=== PATIENT | female | born 1975 ===

== ENCOUNTER 2017-10-22 11:15 | Emergency (ER) | payer BC ==
[2017-10-22 11:52] VITALS: RESP 16; TEMP 97.7; O2SAT 100
[2017-10-22] MEDS ORDERED: Rabies Immune Globulin 150 INTLU/ML VIAL IM ONE (12:05)
[2017-10-22] MEDS ORDERED: RABIES VACCINE 2.5 Units PDR IM ONE (12:06)
[2017-10-22] MEDS ORDERED: Tetanus/Diphtheria Toxoids 0.5 ml Syringe IM ONE (12:07)
--- NOTE | 2017-10-22 12:11 | C.PDOC ---
History Of Present Illness SP CAT BITE ONSET WAFER SUBSTRATE TESTER. PS WAS FEEDING A STRAY CAT WELL KNOWN TO HER, WHEN SHE PUT THE BOWL DOWN CAT BIT HER. NO OTHER ASSOC INJ. UNK VACCINE STATUS EXAM NAD SKIN +BITE CAPPS R LOWER LEG NO ACTIVE BLEEDING, CLOTTED. NO ECHYMOSIS EXT NO SWELL DEFORM REMAINDER NEG MDM ADVISED NEED FOR REPEAT ADDL RABIES VACCINE. ABX, IMM GLOB Time Seen by Provider: 10/22/17 11:56 Chief Complaint (Nursing): Bite History Per: Patient History/Exam Limitations: no limitations Onset/Duration Of Symptoms: Sudden Onset (WAFER SUBSTRATE TESTER) Current Symptoms Are (Timing): Still Present Past Medical History Reviewed: Historical Data, Nursing Documentation, Vital Signs Vital Signs: Last Vital Signs Temp 97.7 F 10/22/17 11:49 Pulse 60 10/22/17 11:49 Resp 16 10/22/17 11:49 BP 98/56 L 10/22/17 11:49 Pulse Ox 100 10/22/17 12:19 Family History: States: No Known Family Hx - Social History Hx Alcohol Use: No Hx Substance Use: No - Immunization History Hx Tetanus Toxoid Vaccination: No Hx Influenza Vaccination: No Hx Pneumococcal Vaccination: No Review Of Systems Except As Marked, All Systems Reviewed And Found Negative. Gastrointestinal: Negative for: Nausea, Vomiting Skin: Positive for: Other ((+) cat bite to right lower leg). Negative for: Rash Neurological: Negative for: Weakness, Numbness Physical Exam - Physical Exam Appears: Non-toxic, No Acute Distress Skin: Warm, Dry, No Rash, Other ((+) bite capps to right lower leg, no active bleeding, clotted, no ecymosis) Head: Atraumatic, Normacephalic Oral Mucosa: Moist Extremity: Normal ROM, No Tenderness, No Calf Tenderness, No Swelling Neurological/Psych: Oriented x3, Normal Speech, Normal Motor, Normal Sensation Gait: Steady ED Course And Treatment O2 Sat by Pulse Oximetry: 100 (RA) Pulse Ox Interpretation: Normal Progress Note: PROCUDURE: 5 ML RABIES IMMUNOGLOBULIN INFILITRATED IN BITE WOUNDS IN R LEG. PT TOLERATED WELL Medical Decision Making Medical Decision Making: PLAN: * Clindamycin PO * Rabies Immune Globulin IM * Rabavert Vaccine IM * Tetanus IM NOTE: Advised patient need to repeat additional rabies vaccine, ABX, immune globulin. Disposition Counseled Patient/Family Regarding: Diagnosis, Need For Followup, Rx Given - Disposition Referrals: [facility] [Provider Group] Disposition: HOME/ ROUTINE Disposition Time: 12:10 Condition: IMPROVED Additional Instructions: REGRESE EL , Y EL 11/05 PARA REPETIR LA VACUNA DE LA BIANCA. ANTIBITICOS COMPLETOS SEGN LO PRESCRITO. Prescriptions: Clindamycin [Cleocin] 300 mg PO QID #27 cap Instructions: Animal Bite (ED), Rabies Vaccine (ED) Forms: [employer] (Mauritian) Print Language: GABONESE - Clinical Impression Clinical Impression: Cat bite - Scribe Statement The provider has reviewed the documentation as recorded by the Scribe Tashia Sosa Provider Attestation: All medical record entries made by the Scribe were at my direction and personally dictated by me. I have reviewed the chart and agree that the record accurately reflects my personal performance of the history, physical exam, medical decision making, and the department course for this patient. I have also personally directed, reviewed, and agree with the discharge instructions and disposition.
[2017-10-22 12:49] VITALS: BP 107/48; PULSE 51
== END 2017-10-22 13:01 | disposition home or self-care (01) ==
LOC: C.ER 11:15
DX: S81.831A Puncture wound without foreign body, right lower leg, initial encounter (principal); W55.01XA Bitten by cat, initial encounter; Y92.89 Other specified places as the place of occurrence of the external cause

== ENCOUNTER 2017-10-22 20:21 | Emergency (ER) | payer BC ==
[2017-10-22 21:28] VITALS: BP 103/59; PULSE 79; RESP 20; TEMP 99.6; O2SAT 100
--- NOTE | 2017-10-22 22:26 | C.PDOC ---
History Of Present Illness Patient is a 41 y/o female who presents to the ED with a complaint of subjective fever, feeling weak, and dry cough. Patient was recently seen in ED for a cat bite this morning; patient received rabies and immunoglobulin vaccine at the time and speculates to be having an allergic reaction however reports that she's been coughing even befor cat bite today. No headache, confusion, lethargy, chest pain, SOB or other complaints at this time. Time Seen by Provider: 10/22/17 21:49 Chief Complaint (Nursing): Fever History Per: Patient History/Exam Limitations: no limitations Onset/Duration Of Symptoms: Hrs Current Symptoms Are (Timing): Still Present Past Medical History Vital Signs: Last Vital Signs Temp 99.6 F 10/22/17 21:25 Pulse 79 10/22/17 21:25 Resp 20 10/22/17 21:25 BP 103/59 L 10/22/17 21:25 Pulse Ox 100 10/23/17 01:09 - Medical History PMH: No Chronic Diseases Family History: States: Unknown Family Hx - Social History Hx Alcohol Use: No Hx Substance Use: No - Immunization History Hx Tetanus Toxoid Vaccination: No Hx Influenza Vaccination: No Hx Pneumococcal Vaccination: No Review Of Systems Constitutional: Positive for: Fever (subjective), Weakness, Malaise Respiratory: Positive for: Cough (dry) Physical Exam - Physical Exam Appears: Well, Non-toxic, No Acute Distress Head: Atraumatic Eye(s): bilateral: Normal Inspection, PERRL, EOMI Ear(s): Bilateral: Normal Nose: Normal Oral Mucosa: Moist Neck: Normal, Supple Cardiovascular: Rhythm Regular Respiratory: Normal Breath Sounds, No Rhonchi, No Wheezing Extremity: Normal ROM Neurological/Psych: Oriented x3, Normal Speech, Normal Motor, Normal Sensation Gait: Steady ED Course And Treatment O2 Sat by Pulse Oximetry: 100 Pulse Ox Interpretation: Normal Progress Note: Motrin administered. On re-eval, patient seems comfortable and feeling better. Patient to be discharged and advised to follow up with PMD if symptoms worsen. Return precautions discussed Reassessment Condition: Improved Disposition - Disposition Referrals: [facility] [Outside] Disposition: HOME/ ROUTINE Disposition Time: 22:23 Condition: STABLE Additional Instructions: Please follow up with PMD Take motrin for pain Increase PO fluids/ bed rest Return to ER if worse Prescriptions: Ibuprofen [Motrin] 600 mg PO Q6H #20 tab Instructions: Viral Syndrome (ED), Rabies Vaccine (ED) Forms: [employer] (Georgian) Print Language: INDIAN - Clinical Impression Clinical Impression: Viral illness, Vaccine reaction - Scribe Statement The provider has reviewed the documentation as recorded by the Scribe Inessa Carolina All medical record entries made by the Scribe were at my direction and personally dictated by me. I have reviewed the chart and agree that the record accurately reflects my personal performance of the history, physical exam, medical decision making, and the department course for this patient. I have also personally directed, reviewed, and agree with the discharge instructions and disposition.
== END 2017-10-22 22:40 | disposition home or self-care (01) ==
LOC: C.ER 20:21
DX: B34.9 Viral infection, unspecified (principal); T50.B95A Adverse effect of other viral vaccines, initial encounter; Y92.89 Other specified places as the place of occurrence of the external cause

== ENCOUNTER 2017-10-25 10:55 | Emergency (ER) | payer BC ==
[2017-10-25 11:03] VITALS: BP 99/69; PULSE 63; RESP 18; TEMP 98; O2SAT 97
--- NOTE | 2017-10-25 11:28 | C.PDOC ---
History Of Present Illness 41 y/o female presents to the ED for her second rabies vaccine. The patient states that she was bitten by a stray cat on the right lower leg October 22, 2017. The patient was given Rabies immunoglobulin, rabies vaccine, and Tetanus . The patient states while taking clindamycin PO here in the ER begins to c/ o nausea and abdominal cramping. The patient denies vomiting, and diarrhea. Time Seen by Provider: 10/25/17 11:05 Chief Complaint (Nursing): Rabies Vaccine Series History Per: Patient History/Exam Limitations: no limitations Onset/Duration Of Symptoms: Days Current Symptoms Are (Timing): Still Present Additional History Per: Patient Past Medical History Reviewed: Historical Data, Nursing Documentation, Vital Signs Vital Signs: Last Vital Signs Temp 98 F 10/25/17 11:02 Pulse 63 10/25/17 11:02 Resp 18 10/25/17 11:02 BP 99/69 L 10/25/17 11:02 Pulse Ox 97 10/25/17 13:54 Surgical History: No Surg Hx Family History: States: No Known Family Hx - Social History Hx Alcohol Use: No Hx Substance Use: No - Immunization History Hx Tetanus Toxoid Vaccination: No Hx Influenza Vaccination: No Hx Pneumococcal Vaccination: No Review Of Systems Except As Marked, All Systems Reviewed And Found Negative. Constitutional: Negative for: Fever, Chills Gastrointestinal: Positive for: Nausea, Abdominal Pain (cramping ). Negative for: Vomiting, Diarrhea Physical Exam - Physical Exam Appears: Non-toxic, No Acute Distress, Other (bizarre affect) Skin: Dry, Other (right lower leg healing wound ) Head: Atraumatic, Normacephalic Eye(s): bilateral: Normal Inspection Oral Mucosa: Moist Neck: Supple Chest: Symmetrical Cardiovascular: Rhythm Regular Respiratory: Normal Breath Sounds Extremity: Capillary Refill (2<sec. ), No Swelling, Other (no bleeding, and no erythema ) Neurological/Psych: Oriented x3, Normal Speech Gait: Steady ED Course And Treatment O2 Sat by Pulse Oximetry: 97 (RA) Progress Note: Upon reassesment, the patient is aferbile and comfortable. The patient no longer feels abdomina cramping and nausea. The patient is advised to have a 1-2 day follow up with her PCP for further evaluation. Disposition Counseled Patient/Family Regarding: Diagnosis, Need For Followup - Dis[facility] Disposition: HOME/ ROUTINE Disposition Time: 11:30 Condition: STABLE Additional Instructions: REGRESE AL ISABELLE DE EMERGENCIAS EL 10/29 Y 11/05 PARA VACUNACIONES DE BIANCA Instructions: Rabies Vaccine (By injection) Forms: [employer] (Hungarian) Print Language: GUAMANIAN - Clinical Impression Clinical Impression: Rabies vaccination - Scribe Statement The provider has reviewed the documentation as recorded by the Scribe Leslye Pace
[2017-10-25] MEDS: RABIES VACCINE 2.5 Units PDR IM ONE (11:50)
== END 2017-10-25 11:53 | disposition home or self-care (01) ==
LOC: C.ER 10:55
DX: Z23 Encounter for immunization (principal)

== ENCOUNTER 2017-10-29 10:16 | Emergency (ER) | payer BC ==
[2017-10-29 10:38] VITALS: BP 110/60; PULSE 68; RESP 18; TEMP 97.8; O2SAT 100
--- NOTE | 2017-10-29 11:11 | C.PDOC ---
History Of Present Illness FOR RABIES VACCINE. COMPLIANT W PRIOR DOSING. NO NEW SX SINCE PRIOR ER EVAL EXAM NAD SKIN HEALING WOUNDS R LEG NO INFXN REMAINDER NEG Time Seen by Provider: 10/29/17 11:15 Chief Complaint (Nursing): Rabies Vaccine Series History Per: Patient History/Exam Limitations: no limitations Onset/Duration Of Symptoms: Days Past Medical History Reviewed: Historical Data, Nursing Documentation, Vital Signs Vital Signs: Last Vital Signs Temp 97.8 F 10/29/17 10:35 Pulse 68 10/29/17 10:35 Resp 18 10/29/17 10:35 BP 110/60 10/29/17 10:35 Pulse Ox 100 10/29/17 12:24 Family History: States: No Known Family Hx - Social History Hx Alcohol Use: No Hx Substance Use: No - Immunization History Hx Tetanus Toxoid Vaccination: No Hx Influenza Vaccination: No Hx Pneumococcal Vaccination: No Review Of Systems Except As Marked, All Systems Reviewed And Found Negative. Constitutional: Negative for: Fever Cardiovascular: Negative for: Chest Pain Respiratory: Negative for: Shortness of Breath Gastrointestinal: Negative for: Nausea, Vomiting Neurological: Negative for: Weakness, Numbness Physical Exam - Physical Exam Appears: Non-toxic, No Acute Distress Skin: Warm, Dry, Other (right lower leg, healing wounds, no signs of infections) Head: Atraumatic, Normacephalic Oral Mucosa: Moist Respiratory: Normal Breath Sounds Neurological/Psych: Oriented x3, Normal Speech, Normal Motor ED Course And Treatment O2 Sat by Pulse Oximetry: 100 (RA) Pulse Ox Interpretation: Normal Disposition Counseled Patient/Family Regarding: Diagnosis, Need For Followup - Disposition Disposition: HOME/ ROUTINE Disposition Time: 11:48 Condition: GOOD Additional Instructions: RETURN ON 11/05 FOR REPEAT RABIES VACCINE DOSE Forms: [employer] (Mohawk), Gen Discharge Inst Barbadian - Clinical Impression Clinical Impression: Rabies vaccination - Scribe Statement The provider has reviewed the documentation as recorded by the Liz Sosa Provider Attestation: All medical record entries made by the Darrenibfred were at my direction and personally dictated by me. I have reviewed the chart and agree that the record accurately reflects my personal performance of the history, physical exam, medical decision making, and the department course for this patient. I have also personally directed, reviewed, and agree with the discharge instructions and disposition.
[2017-10-29] MEDS ORDERED: RABIES VACCINE 2.5 Units PDR IM ONE (11:48)
== END 2017-10-29 12:23 | disposition home or self-care (01) ==
LOC: C.ER 10:16
DX: Z23 Encounter for immunization (principal)

== ENCOUNTER 2017-11-05 09:55 | Emergency (ER) | payer BC ==
[2017-11-05 10:16] VITALS: TEMP 97.7
[2017-11-05] MEDS ORDERED: RABIES VACCINE 2.5 Units PDR IM ONE (11:19)
[2017-11-05 11:45] VITALS: BP 98/59; PULSE 49; RESP 12; O2SAT 100
--- NOTE | 2017-11-05 12:03 | C.PDOC ---
History Of Present Illness Pt is here for her 4th and final Rabies vaccination. Time Seen by Provider: 11/05/17 11:02 Chief Complaint (Nursing): Rabies Vaccine Series History Per: Patient, Family Onset/Duration Of Symptoms: Days (14) Current Symptoms Are (Timing): Better Severity: Moderate Reports Recently: Seen In ED Additional History Per: Prior Records Past Medical History Reviewed: Historical Data, Nursing Documentation, Vital Signs Vital Signs: Last Vital Signs Temp 97.7 F 11/05/17 10:13 Pulse 49 L 11/05/17 11:44 Resp 12 11/05/17 11:44 BP 98/59 L 11/05/17 11:44 Pulse Ox 100 11/05/17 11:44 - Medical History PMH: No Chronic Diseases Family History: States: Unknown Family Hx - Social History Hx Alcohol Use: No Hx Substance Use: No - Immunization History Hx Tetanus Toxoid Vaccination: No Hx Influenza Vaccination: No Hx Pneumococcal Vaccination: No Review Of Systems Constitutional: Negative for: Fever Gastrointestinal: Negative for: Vomiting Musculoskeletal: Negative for: Neck Pain Skin: Negative for: Rash Neurological: Negative for: Weakness, Numbness, Seizures, Altered Mental Status Physical Exam - Physical Exam Appears: Non-toxic, No Acute Distress Skin: Normal Color, Warm, Dry Head: Atraumatic Eye(s): bilateral: PERRL, EOMI Neck: Normal ROM, Supple Cardiovascular: Rhythm Regular Respiratory: Normal Breath Sounds, No Accessory Muscle Use Gastrointestinal/Abdominal: Soft, No Tenderness Extremity: Normal ROM, Other (Bite wounds on leg already healed) Extremity: Bilateral: Normal Color And Temperature Neurological/Psych: Oriented x3, Normal Speech, Normal Cognition, Normal Motor, Normal Sensation ED Course And Treatment O2 Sat by Pulse Oximetry: 100 Pulse Ox Interpretation: Normal Disposition Counseled Patient/Family Regarding: Diagnosis, Need For Followup - Disposition Disposition: HOME/ ROUTINE Disposition Time: 12:03 Condition: STABLE Additional Instructions: Follow up with your primary doctor. Return to the ER if you develop worsening of symptoms or if you have any other concerns. Instructions: Rabies Vaccine (ED) Print Language: WOLOF - Clinical Impression Clinical Impression: Rabies vaccination
== END 2017-11-05 12:10 | disposition home or self-care (01) ==
LOC: C.ER 09:55
DX: Z23 Encounter for immunization (principal)

== ENCOUNTER 2018-01-12 11:09 | Emergency (ER) | payer BC ==
[2018-01-12 11:11] VITALS: BMI 24.7
[2018-01-12 11:15] VITALS: BP 100/60; PULSE 62; RESP 18; TEMP 97.2; O2SAT 97
[2018-01-12] MEDS ORDERED: Promethazine/Cod 6.25mg-10mg/5ml Syr UD PO STA (11:25)
[2018-01-12] MEDS ORDERED: Albuterol 0.083% Inhal Sol (2.5 mg/3 mL) UD IH STA (11:25)
--- NOTE | 2018-01-12 11:41 | C.PDOC ---
History Of Present Illness 42 year old female w/o significant PMHx presents to the emergency room with complaints of cold symptoms for the past three days associated with nasal congestion, sore throat, and a productive cough with yellow sputum. Pt admits, use OTC medication without improvement in cough. Otherwise, pt denies high fever, chills, headache, dizziness, neck pain, drooling, dysphagia, dyspnea, CP , SOB, wheezing, abd. pain, V/D, back pian, UTI sx, denies recent travel or known sick contact. AT the time of evaluation, pt appears comfortable, dry cough noted in ED. Time Seen by Provider: 01/12/18 11:11 Chief Complaint (Nursing): ENT Problem History Per: Patient History/Exam Limitations: None Onset/Duration Of Symptoms: Days (3) Current Symptoms Are (Timing): Still Present Past Medical History Reviewed: Historical Data, Nursing Documentation, Vital Signs Vital Signs: Last Vital Signs Temp 97.2 F L 01/12/18 11:11 Pulse 62 01/12/18 11:11 Resp 18 01/12/18 11:11 BP 100/60 01/12/18 11:11 Pulse Ox 97 01/12/18 11:45 - Medical History PMH: Hypercholesterolemia Surgical History: No Surg Hx Family History: States: No Known Family Hx - Social History Hx Alcohol Use: No Hx Substance Use: No - Immunization History Hx Tetanus Toxoid Vaccination: No Hx Influenza Vaccination: No Hx Pneumococcal Vaccination: No Review Of Systems Except As Marked, All Systems Reviewed And Found Negative. ENT: Positive for: Nose Congestion, Throat Pain Respiratory: Positive for: Cough (productive), Sputum (yellow) Physical Exam - Physical Exam Appears: Well, Non-toxic, No Acute Distress Skin: Normal Color, Warm, No Rash Head: Normacephalic Eye(s): bilateral: PERRL Ear(s): Bilateral: Normal Nose: No Flaring, Discharge (nasal congestion B/L with scant clear rhinorrhea) Oral Mucosa: Moist, No Drooling Throat: Erythema (mild B/L), No Exudate, No Drooling Neck: Trachea Midline, Supple Lymphatic: Adenopathy (mild tender, local, anterior cervical B/L) Chest: Symmetrical Cardiovascular: No Murmur, No JVD Respiratory: No Decreased Breath Sounds, No Accessory Muscle Use, No Rales, No Rhonchi, No Stridor, Wheezing (scattered bibasilar, expiratory) Gastrointestinal/Abdominal: Soft, No Tenderness, No Distention, No Guarding Back: No CVA Tenderness Extremity: Normal ROM, No Pedal Edema Neurological/Psych: Oriented x3, Normal Speech ED Course And Treatment O2 Sat by Pulse Oximetry: 97 (RA) Pulse Ox Interpretation: Normal - Radiology CXR: Interpreted by Me, Viewed By Me CXR Interpretation: Yes: No Acute Disease Progress Note: Chest X-Ray ordered (Two Views). Patient administered Albuterol 2.5mg IH, Phenergan 5ml PO, and nebulizer treatment started. On re-evaluation, pt is afebrile, hemodynamicaly stable. NOn-toxic. PulseOx 97% RA. ENT: mild pharyngitis. uvula midline. neck: SUpple, (-) meningeal sign. Lungs: CTA B/L, BS equal B/L. Abd: benign. Neuorlogicaly intact. CXR review and appears normal. Pt has clinical findings c/w acute bronchitis. Pt avdised. ref. to f/ u with PMD in 2-3 days for re-eval. return if any new changes. Disposition Counseled Patient/Family Regarding: Studies Performed, Diagnosis, Need For Followup, Rx Given - Disposition Referrals: [facility] [Outside] Disposition: HOME/ ROUTINE Disposition Time: 12:25 Condition: STABLE Additional Instructions: Encourage fluids Take medication as prescribed Follow up with PMD in 1-2 days for re-evaluation. return to ED if any worsening or new changes. Prescriptions: Albuterol HFA [Ventolin HFA 90 mcg/actuation (8 g)] 1 puff IH Q6 #1 inhaler Azithromycin 1 tab PO DAILY #4 tab Promethazine/Codeine [Phenergan/Codeine Oral Syrup] 10 ml PO TID #90 ml Instructions: Acute Bronchitis Forms: [employer] (Urdu) Print Language: NIUEAN - Clinical Impression Clinical Impression: Bronchitis - PA / ASSOCIATE TRAINER / Resident Statement MD/DO has reviewed & agrees with the documentation as recorded. - Scribe Statement The provider has reviewed the documentation as recorded by the Scribe (Miguel Pierre) All medical record entries made by the Scribe were at my direction and personally dictated by me. I have reviewed the chart and agree that the record accurately reflects my personal performance of the history, physical exam, medical decision making, and the department course for this patient. I have also personally directed, reviewed, and agree with the discharge instructions and disposition.
[2018-01-12] MEDS ORDERED: Albuterol 0.083% Inhal Sol (2.5 mg/3 mL) UD ONE (11:47)
[2018-01-12] MEDS ORDERED: Promethazine/Cod 6.25mg-10mg/5ml Syr UD ONE (11:54)
--- NOTE | 2018-01-12 13:11 | RAD ---
HISTORY: Cough COMPARISON: No prior. TECHNIQUE: Chest PA and lateral FINDINGS: LUNGS: No active pulmonary disease. PLEURA: No significant pleural effusion identified. No pneumothorax apparent. Minor biapical pleural thickening. CARDIOVASCULAR: Normal. OSSEOUS STRUCTURES: No significant abnormalities. VISUALIZED UPPER ABDOMEN: Normal. OTHER FINDINGS: None. IMPRESSION: No acute infiltrates.
== END 2018-01-12 12:41 | disposition home or self-care (01) ==
LOC: C.ER 11:09
DX: J40 Bronchitis, not specified as acute or chronic (principal)

== ENCOUNTER 2018-08-03 23:36 | Emergency (ER) | payer BC ==
[2018-08-03 23:36] VITALS: BMI 24.7
[2018-08-03 23:44] VITALS: BP 104/68; PULSE 64; RESP 20; TEMP 98; O2SAT 98
--- NOTE | 2018-08-03 23:54 | C.PDOC ---
History Of Present Illness patient presents with cough congestion and sore throat which started yesterday. tolerating own secretions. Speaking in complete sentences. No f/c/n/v. Time Seen by Provider: 08/03/18 23:53 Chief Complaint (Nursing): Cough, Cold, Congestion Past Medical History Reviewed: Historical Data, Nursing Documentation, Vital Signs Vital Signs: Last Vital Signs Temp 98 F 08/03/18 23:41 Pulse 64 08/03/18 23:41 Resp 20 08/03/18 23:41 BP 104/68 08/03/18 23:41 Pulse Ox 98 08/03/18 23:41 - Medical History PMH: Hypercholesterolemia Family History: States: No Known Family Hx - Social History Hx Alcohol Use: No Hx Substance Use: No - Immunization History Hx Tetanus Toxoid Vaccination: Yes Hx Influenza Vaccination: No Hx Pneumococcal Vaccination: No Review Of Systems Constitutional: Negative for: Fever, Chills ENT: Positive for: Nose Discharge, Nose Congestion, Throat Pain Cardiovascular: Negative for: Chest Pain Respiratory: Negative for: Shortness of Breath Skin: Negative for: Rash Psych: Negative for: Anxiety Physical Exam - Physical Exam Appears: Non-toxic, No Acute Distress Skin: Warm, Dry Ear(s): Bilateral: Normal Nose: Discharge (clear) Oral Mucosa: Moist Throat: Erythema, No Exudate, No Drooling Neck: Supple Chest: Symmetrical Cardiovascular: Rhythm Regular Respiratory: No Rales, No Rhonchi, No Wheezing ED Course And Treatment O2 Sat by Pulse Oximetry: 98 Disposition Counseled Patient/Family Regarding: Studies Performed, Diagnosis, Need For Followup, Rx Given - Disposition Referrals: [facility] [Outside] [facility] [Outside] Disposition: HOME/ ROUTINE Disposition Time: 23:54 Condition: FAIR Additional Instructions: Please return if symptoms recur Prescriptions: Albuterol HFA [Ventolin HFA 90 mcg/actuation (8 g)] 2 puff IH [id number] #1 puff Azithromycin [Zithromax Tri-Jose Alberto] 500 mg PO DAILY #3 tab Ibuprofen [Motrin Tab] 800 mg PO TID PRN #12 tab PRN Reason: Pain, Moderate (4-7) Instructions: Upper Respiratory Infection (ED) Forms: [employer] (Azerbaijani) Print Language: GABONESE - Clinical Impression Clinical Impression: Upper respiratory infection, Pharyngitis
[2018-08-04] MEDS: Albuterol-Ipratrop 3 mg / 0.5 (3 ml) UD IH SCH ×3 (00:20→00:45)
[2018-08-04] MEDS ORDERED: Albuterol-Ipratrop 3 mg / 0.5 (3 ml) UD ONE (00:42)
== END 2018-08-04 02:06 | disposition home or self-care (01) ==
LOC: C.ER 23:36
DX: J02.9 Acute pharyngitis, unspecified (principal)